=== PATIENT | male | born 1985 | race Caucasian/White ===

== ENCOUNTER 2022-04-14 06:09 | Emergency (ER) | payer OTHER ==
[~2022-04-14 06:09] MED LIST: FLOMAX0.4 MG PO; PERCOCET 5/325 T1 EA PO; TORADOL 10 MG T10 MG PO
[2022-04-14 06:32] LABS: HEMOGLOBIN 14.2 gm/dl (14.0-17.5); RED BLOOD COUNT 5.19 M/UL (4.20-5.50); WHITE BLOOD COUNT 10.5 K/UL (4.5-11.0)
[2022-04-14 07:56] LABS: BUN/CREATININE RATIO 13 (0-10)
== END 2022-04-14 08:10 | disposition home or self-care (01) ==
LOC: ER1 06:09
PROVIDERS: Physician Assistant
DX: N20.0 Calculus of kidney (principal); I10 Essential (primary) hypertension
CPT/HCPCS: 80053; 81001; 83690; 85025; 99284; J1885; J2405